=== PATIENT | female | born 1945 | race Caucasian/White ===

== ENCOUNTER 2022-05-15 07:33 | Day surgery (SDC) | payer MEDICARE, SELFPAY ==
[2022-05-09 14:27] VITALS: BMI 33.9
--- NOTE | 2022-05-12 08:19 | MHC.SHP ---
Pre-Procedural Eval Section A Date of Service: 05/12/22 The patient is an INPATIENT: No Changes since office visit: No Cold of Flu in the past 2 weeks, No New Medical Problems, No Changes in Medication and No Patient answered all questions The History & Physical has been completed within 30 days and I have reviewed it.: Yes Section B Chief Complaint: Age-related nuclear cataract, right eye Allergies: Allergies Allergy/AdvReac Type Severity Reaction Status Date / Time hydromorphone Allergy Hallucinati Verified 05/09/22 14:25 ons oxycodone [OXYCODONE] AdvReac Severe confusion Unverified 05/09/22 14:25 budesonide [From Symbicort] AdvReac Loss of Verified 05/09/22 14:25 Voice formoterol [From Symbicort] AdvReac Loss of Verified 05/09/22 14:25 Voice prednisone AdvReac Confusion Verified 05/09/22 14:25 Plan Diagnosis/Plan: Unchanged I have reviewed the history and physical and performed a pertinent physical examination on my patient. No changes have occurred unless specified. Time Spent With Patient Time: Total time managing care of this patient today ____ minutes.
[2022-05-15 09:41] VITALS: BP 156/90; PULSE 82; RESP 20; TEMP 36.6; O2SAT 95
[2022-05-15] MEDS: Tropicamide 1 % Ophth Sol 3 ML BTL 1 DROP EYE-RIGHT ×3 (09:47→09:48)
[2022-05-15] MEDS: Cyclopentolate 1 % Ophth Sol 2 ML DRPBTL 1 DROP EYE-RIGHT ×3 (09:47→09:48)
[2022-05-15] MEDS: Ketorolac Tromethamine 0.5% Op 5 ML DROPS 1 DROP EYE-RIGHT ×3 (09:47→09:48)
[2022-05-15] MEDS: Tetracaine HCl/PF 0.5% Oph Sol 4 ML DROPS 1 DROP EYE-RIGHT (09:47)
[2022-05-15] MEDS: Phenylephrine HCL 2.5% Oph SoL 2 ML BOTTLE 1 DROP EYE-RIGHT ×3 (09:47→09:48)
--- NOTE | 2022-05-15 09:58 | HO.ANESPROP2 ---
HPI - Anesthesia Eval Consult details Narrative: Right cataract PMFSH Past Medical History Medical History Anxiety COPD (chronic obstructive pulmonary disease) Depression GERD (gastroesophageal reflux disease) History of COVID-19 History of IBS Hx of cancer of lung Hyperlipidemia Family History Family history of problems with anesthesia: No Surgical History Surgical History History of bilateral carpal tunnel release History of lobectomy of lung History of lumbar discectomy Hx of colonoscopy History of Problems with Anesthesia: No Social History Social History Household Members Other:: Elderly housing Housing Other:: Elderly Housing Are you a primary critical care physician assistant to a significant other at home: No 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 If so, by whom?: No Are you DNR?: No Advance Directives: No Advance Directives Information Provided: Yes Advance Directives on File: No Recently lost weight without trying: No Eating poorly because of decreased appetite: No Nutrition Risks: No Nutritional Risk Meds Allergies Allergy/AdvReac Type Severity Reaction Status Date / Time hydromorphone Allergy Hallucinati Verified 05/09/22 14:25 ons oxycodone [OXYCODONE] AdvReac Severe confusion Verified 05/15/22 09:46 budesonide [From Symbicort] AdvReac Loss of Verified 05/09/22 14:25 Voice formoterol [From Symbicort] AdvReac Loss of Verified 05/09/22 14:25 Voice prednisone AdvReac Confusion Verified 05/09/22 14:25 Active Medications: Current Medications Povidone Iodine (Povidone Iodine 5 % Ophth Soln 30 Ml Bottle) 1 appl EYE-RIGHT PREOP PRN PRN Reason: Pre-Op Surgical Implant Prophy Home Medications Medication Instructions Recorded Confirmed Last Taken Type albuterol sulfate 90 mcg/actuation inhalation 02/22/22 Unknown History aerosol inhaler duloxetine 30 mg capsule,delayed 1 cap PO DAILY 02/22/22 05/09/22 05/15/22 History release fluticasone fur. 100 mcg-umeclid 1 puff inhalation DAILY 02/22/22 05/09/22 Unknown History 62.5 mcg-vilant 25 mcg inhalat.powder (Trelegy Ellipta) ipratropium 0.5 mg-albuterol 3 mg ml inhalation 02/22/22 Unknown History (2.5 mg base)/3 mL nebulization soln lorazepam 0.5 mg tablet 1 tab PO TID 02/22/22 05/09/22 05/15/22 History primidone 50 mg tablet 1 tab PO DAILY 02/22/22 05/09/22 Unknown History sertraline 100 mg tablet 1 tab PO BID 02/22/22 05/09/22 Unknown History simvastatin 40 mg tablet 1 tab PO BEDTIME 02/22/22 05/09/22 Unknown History Exam Exam Date and Time: May 15, 2022 0958 Height,Weight and Vital Signs: Height 5 ft 2 in Weight 84.2 kg Last Vital Signs Temp 98 F 05/15/22 09:41 Pulse 82 05/15/22 09:41 Resp 20 05/15/22 09:41 BP 156/90 H 05/15/22 09:41 Pulse Ox 95 05/15/22 09:41 O2 Del Method 05/15/22 09:41 Airway Mallampati Class: I TM Dist: >3cm Neck ROM: Full Loose/Missing/Broken Teeth: Yes and Lower Heart: ok Lungs: ok Assessment and Plan Final Anesthetic Review Family History of Problems with Anesthesia: No History of Problems with Anesthesia: No NPO: Yes ASA Class: III Final Preanesthetic Review: No Changes in Pt Med Stat, Meds/Allgs Chart Reviewed, Consent Obtained/Reviewed and Anes Risks/Benef Reviewed Patient Risk: High Procedure Risk: Intermediate Anesthetic Plan Anesthetic Plan: MAC: and Agree w/ Assess. and Plan Disposition: Standard PACU
[2022-05-15] MEDS: Lactated Ringers 1,000 ML 50 ML IVCONT (10:36)
--- NOTE | 2022-05-15 10:37 | HO.PNOPHT ---
Ophthalmology Procedure Procedure Date of Service: 05/15/22 Ophthalmology Viscoelastic: Healezekiel Johnsont Dual Pack Pro Ophthalmology Lenses: TECNIS [id number] (27.5) Procedure Notes: PREOPERATIVE DIAGNOSIS: Decreased visual acuity right eye secondary to cataract POSTOPERATIVE DIAGNOSIS: Same PROCEDURE: Right cataract extraction with intraocular lens insertion SURGEON: Faisal Delvalle M.D. ANESTHESIA: Topical/MAC ESTIMATED BLOOD LOSS: None COMPLICATIONS: None After obtaining informed consent, the patient was brought to the operating room suite and placed in the supine position. After adequate sedation per anesthesia, topical drops of Tetracaine were given to the right eye. The eye was then prepped and draped in the usual sterile fashion. The operating room microscope was then positioned over the operative eye and a lid speculum placed. A paracentesis was created. Viscoelastic was then instilled into the anterior chamber. A three plane incision was then created temporally, utilizing a 2.85 mm keratome. Capsulotomy forceps were then utilized to create a circular tear capsulotomy. Hydrodissection and hydrodelineation were carried out until adequate mobilization of the nucleus occurred. Phacoemulsification was then utilized to remove the dense central nucleus followed by removal of the cortical material utilizing the automated aspiration irrigation unit. Viscoelastic was instilled into the posterior capsular bag followed by placement of a posterior chamber intraocular lens without difficulty. The residual Viscoelastic was then removed utilizing the automated IA machine. The wound was checked and found to be watertight. The patient tolerated the procedure well and the lid speculum was removed. Intracameral injection of Vigamox 0.1 mL followed by a subtenon injection of Kenalog-40 0.2 mL were administered. The patient will be seen in the a.m.
[2022-05-15 10:58] VITALS: BP 177/99; PULSE 83; RESP 22; TEMP 36.9; O2SAT 99
[2022-05-15 11:04] VITALS: BP 156/90; PULSE 81; RESP 18; TEMP 36.9; O2SAT 99
== END 2022-05-15 11:17 | disposition home or self-care (01) ==
PROVIDERS: PCP Nurse Practitioner Family; Visit Provider Ophthalmology
PROC: (CPT 66985; principal; 2022-05-15 10:40)
DX: H25.11 Age-related nuclear cataract, right eye (principal); H54.7 Unspecified visual loss; J44.9 Chronic obstructive pulmonary disease, unspecified; R06.02 Shortness of breath; I10 Essential (primary) hypertension; E78.5 Hyperlipidemia, unspecified; F33.9 Major depressive disorder, recurrent, unspecified; Z85.118 Personal history of other malignant neoplasm of bronchus and lung; Z90.2 Acquired absence of lung [part of]; Z99.81 Dependence on supplemental oxygen; Z87.891 Personal history of nicotine dependence; Z79.51 Long term (current) use of inhaled steroids; Z79.899 Other long term (current) drug therapy; Z86.16 Personal history of COVID-19; Z66 Do not resuscitate
CPT/HCPCS: 66984; J3301; V2632

== ENCOUNTER 2022-05-29 07:00 | Day surgery (SDC) | payer MEDICARE, SELFPAY ==
[2022-05-09 14:59] VITALS: BMI 33.9
--- NOTE | 2022-05-26 09:59 | MHC.SHP ---
Pre-Procedural Eval Section A Date of Service: 05/26/22 The patient is an INPATIENT: No Changes since office visit: No Cold of Flu in the past 2 weeks, No New Medical Problems, No Changes in Medication and No Patient answered all questions The History & Physical has been completed within 30 days and I have reviewed it.: Yes Section B Chief Complaint: Age-related nuclear cataract, left eye Allergies: Allergies Allergy/AdvReac Type Severity Reaction Status Date / Time hydromorphone Allergy Hallucinati Verified 05/09/22 14:25 ons oxycodone [OXYCODONE] AdvReac Severe confusion Verified 05/15/22 09:46 budesonide [From Symbicort] AdvReac Loss of Verified 05/09/22 14:25 Voice formoterol [From Symbicort] AdvReac Loss of Verified 05/09/22 14:25 Voice prednisone AdvReac Confusion Verified 05/09/22 14:25 Plan Diagnosis/Plan: Unchanged I have reviewed the history and physical and performed a pertinent physical examination on my patient. No changes have occurred unless specified. Time Spent With Patient Time: Total time managing care of this patient today ____ minutes.
--- NOTE | 2022-05-29 07:50 | OP_ITS ---
Ophthalmology Procedure Procedure Date of Service: 05/29/22 Ophthalmology Viscoelastic: Healezekiel Johnsont Dual Pack Pro Ophthalmology Lenses: TECFAVIOLA [id number] (27) Procedure Notes: PREOPERATIVE DIAGNOSIS: Decreased visual acuity left eye secondary to cataract POSTOPERATIVE DIAGNOSIS: Same PROCEDURE: Left cataract extraction with intraocular lens insertion SURGEON: Faisal Delvalle M.D. ANESTHESIA: Topical/MAC ESTIMATED BLOOD LOSS: None COMPLICATIONS: None After obtaining informed consent, the patient was brought to the operation room suite and placed in the supine position. After adequate sedation per anesthesia, topical drops of Tetracaine were given to the left eye. The eye was then prepped and draped in the usual sterile fashion. The operating room microscope was then positioned over the operative eye and a lid speculum placed. A paracentesis was created. Viscoelastic was then instilled into the anterior chamber. A three plane incision was then created temporally, utilizing a 2.85 mm keratome. Capsulotomy forceps were then utilized to create a circular tear capsulotomy. Hydrodissection and hydrodelineation were carried out until adequate mobilization of the nucleus occurred. Phacoemulsification was then utilized to remove the dense central nucleus followed by removal of the cortical material utilizing the automated aspiration irrigation unit. Viscoat elastic was instilled into the posterior capsular bag followed by placement of a posterior chamber intraocular lens without difficulty. The residual Viscoat elastic was then removed utilizing the automated IA machine. The wound was check and found to be watertight. The patient tolerated the procedure well and the lid speculum was removed. Intracameral injection of Vigamox 0.1 mL followed by a subtenon injection of Kenalog-40 0.2 mL were administered. The patient will be seen in the a.m. MTDD
[2022-05-29] MEDS: Tetracaine HCl/PF 0.5% Oph Sol 4 ML DROPS 1 DROP EYE-LEFT (07:54)
[2022-05-29] MEDS: Cyclopentolate 1 % Ophth Sol 2 ML DRPBTL 1 DROP EYE-LEFT ×3 (07:56→08:08)
--- NOTE | 2022-05-29 07:57 | P.CONAN_ITS ---
FORMERLY [facility], LATER [facility] Past Medical History Medical History Anxiety COPD (chronic obstructive pulmonary disease) Depression GERD (gastroesophageal reflux disease) History of COVID-19 History of IBS Hx of cancer of lung Hyperlipidemia Family History Family history of problems with anesthesia: No Surgical History Surgical History History of bilateral carpal tunnel release History of lobectomy of lung History of lumbar discectomy Hx of colonoscopy History of Problems with Anesthesia: No Social History Social History Household Members Other:: Elderly housing Housing Other:: Elderly Housing Are you a primary rn transitional care to a significant other at home: No Do you presently have 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 If so, by whom?: No Are you DNR?: No Advance Directives: No Advance Directives Information Provided: Yes Advance Directives on File: No Recently lost weight without trying: No Eating poorly because of decreased appetite: No Nutrition Risks: No Nutritional Risk Meds Allergies Allergy/AdvReac Type Severity Reaction Status Date / Time hydromorphone Allergy Hallucinati Verified 05/29/22 07:44 ons oxycodone [OXYCODONE] AdvReac Severe confusion Verified 05/29/22 07:44 budesonide [From Symbicort] AdvReac Loss of Verified 05/29/22 07:44 Voice formoterol [From Symbicort] AdvReac Loss of Verified 05/29/22 07:44 Voice prednisone AdvReac Confusion Verified 05/29/22 07:44 Active Medications: Current Medications Lactated Ringer's (Lr) 500 mls @ 20 mls/hr IVCONT .Q24H SUNITA Povidone Iodine (Povidone Iodine 5 % Ophth Soln 30 Ml Bottle) 1 appl EYE-LEFT PREOP PRN PRN Reason: Pre-Op Surgical Implant Prophy Home Medications Medication Instructions Recorded Confirmed Last Taken Type albuterol sulfate 90 mcg/actuation inhalation 02/22/22 Unknown History aerosol inhaler duloxetine 30 mg capsule,delayed 1 cap PO DAILY 02/22/22 05/09/22 05/29/22 06:30 History release fluticasone fur. 100 mcg-umeclid 1 puff inhalation DAILY 02/22/22 05/09/22 Unknown History 62.5 mcg-vilant 25 mcg inhalat.powder (Trelegy Ellipta) ipratropium 0.5 mg-albuterol 3 mg ml inhalation 02/22/22 Unknown History (2.5 mg base)/3 mL nebulization soln lorazepam 0.5 mg tablet 1 tab PO TID 02/22/22 05/09/22 05/29/22 06:30 History primidone 50 mg tablet 1 tab PO DAILY 02/22/22 05/09/22 Unknown History sertraline 100 mg tablet 1 tab PO BID 02/22/22 05/09/22 Unknown History simvastatin 40 mg tablet 1 tab PO BEDTIME 02/22/22 05/09/22 Unknown History Exam Exam Date and Time: May 29, 2022 5884 Height,Weight and Vital Signs: Height 5 ft 2 in Weight 84.2 kg Airway Mallampati Class: II TM Dist: >3cm Neck ROM: Full Loose/Missing/Broken Teeth: No Heart: RRR Lungs: CTA Assessment and Plan Assessment Anesthesia Assessment: Anesthesia Plan Discussed and Chart Reviewed Final Anesthetic Review Family History of Problems with Anesthesia: No History of Problems with Anesthesia: No ASA Class: III Final Preanesthetic Review: Meds/Allgs Chart Reviewed, Consent Obtained/Reviewed and Anes Risks/Benef Reviewed Patient Risk: Low Procedure Risk: Low Anesthetic Plan Anesthetic Plan: MAC: Disposition: Standard PACU
[2022-05-29] MEDS: Tropicamide 1 % Ophth Sol 3 ML BTL 1 DROP EYE-LEFT ×3 (07:58→08:09)
[2022-05-29] MEDS: Ketorolac Tromethamine 0.5% Op 5 ML DROPS 1 DROP EYE-LEFT ×3 (07:59→08:10)
[2022-05-29] MEDS: Phenylephrine HCL 2.5% Oph SoL 2 ML BOTTLE 1 DROP EYE-LEFT ×3 (08:01→08:11)
[2022-05-29] MEDS: Lactated Ringers 500 ML 20 ML IVCONT (08:07)
[2022-05-29 08:12] VITALS: BP 138/76; PULSE 76; RESP 17; TEMP 36; O2SAT 93
[2022-05-29 09:16] VITALS: BP 128/74; PULSE 73; RESP 16; TEMP 36.8; O2SAT 97
== END 2022-05-29 09:28 | disposition home or self-care (01) ==
LOC: HO.SSS 07:00
PROVIDERS: PCP Nurse Practitioner Family; Visit Provider Ophthalmology
PROC: (CPT 66985; principal; 2022-05-29 08:50)
DX: H25.12 Age-related nuclear cataract, left eye (principal); H35.341 Macular cyst, hole, or pseudohole, right eye; H54.7 Unspecified visual loss; J44.9 Chronic obstructive pulmonary disease, unspecified; Z85.118 Personal history of other malignant neoplasm of bronchus and lung; Z87.891 Personal history of nicotine dependence; Z79.51 Long term (current) use of inhaled steroids; Z79.899 Other long term (current) drug therapy; Z88.8 Allergy status to other drugs, medicaments and biological substances
CPT/HCPCS: 66984; J3301; V2632

== ENCOUNTER 2023-04-11 15:13 | Emergency (ER) | payer MEDICARE, SELFPAY ==
--- NOTE | ~2023-04-11 | XR_ITS ---
EXAMINATION: XR LUMBOSACRAL SPINE CLINICAL INFORMATION: Pain COMPARISON: None available. TECHNIQUE: Three views of the lumbosacral spine. FINDINGS: Bone alignment is normal. No fracture or dislocation. Multilevel spondylosis. Lower lumbar spine facet arthritis. Central pelvic calcification probably representing a calcified fibroid. Mild atherosclerotic disease XR/XR lumbar spine 2-3V IMPRESSION: Degenerative changes
--- NOTE | 2023-04-11 15:25 | ED.GENADULT ---
HPI - General Adult General Chief complaint: Back Pain/Injury Stated complaint: BACK PAIN/SPASM PER EMS Time Seen by Provider: 04/11/23 15:25 Source: patient, family (patient's daughter) and EMS Mode of arrival: EMS Limitations: no limitations History of Present Illness HPI narrative: Patient is a 77 year old assigned female at with a history of lung cancer presenting to the emergency department today with right sided low back pain. Patient states that she was sitting for awhile working on a project when she began to have low back pain. Patient states that it got better, she slept, and woke up the this morning with more pain in the right low back. Patient denies any dizziness, lightheadedness, abdominal pain, nausea, vomiting, fever, chills, blurry vision, double vision, loss of vision, chest pain, difficulty breathing, shortness of breath, night sweats, pain with urination, increased urinary frequency, increased urinary urgency, blood in her urine or stool, syncope or a near syncopal episode, recent trauma or falls, bowel incontinence, bladder incontinence, bowel retention, bladder retention, or any other complaints at this time. Onset (ago): day(s) (1) Location: back Radiation: non-radiation Severity: mild Severity scale (1-10): 3 Quality: aching and dull Pain Consistency: constant Relieving factors: none Exacerbating factors: movement Associated symptoms: denies other symptoms Treatments prior to arrival: none Related Data Home Medications Medication Instructions Recorded Confirmed albuterol sulfate 90 mcg/actuation inhalation 02/22/22 aerosol inhaler duloxetine 30 mg capsule,delayed 1 cap PO DAILY 02/22/22 05/09/22 release fluticasone fur. 100 mcg-umeclid 1 puff inhalation DAILY 02/22/22 05/09/22 62.5 mcg-vilant 25 mcg inhalat.powder (Trelegy Ellipta) ipratropium 0.5 mg-albuterol 3 mg ml inhalation 02/22/22 (2.5 mg base)/3 mL nebulization soln lorazepam 0.5 mg tablet 1 tab PO TID 02/22/22 05/09/22 primidone 50 mg tablet 1 tab PO DAILY 02/22/22 05/09/22 sertraline 100 mg tablet 1 tab PO BID 02/22/22 05/09/22 simvastatin 40 mg tablet 1 tab PO BEDTIME 02/22/22 05/09/22 Previous Rx's Medication Instructions Recorded cyclobenzaprine 5 mg tablet 5 mg PO TID PRN muscle spasm 7 04/11/23 days #21 tabs Allergies Allergy/AdvReac Type Severity Reaction Status Date / Time hydromorphone Allergy Hallucinati Verified 05/29/22 07:44 ons oxycodone [OXYCODONE] AdvReac Severe confusion Verified 05/29/22 07:44 budesonide [From Symbicort] AdvReac Loss of Verified 05/29/22 07:44 Voice formoterol [From Symbicort] AdvReac Loss of Verified 05/29/22 07:44 Voice prednisone AdvReac Confusion Verified 05/29/22 07:44 Review of Systems Constitutional: Constitutional: Reports no additional constitutional complaints, Denies chills, Denies fever(s) and Denies night sweats Eyes: Eyes: Reports no additional eye complaints, Denies blurry vision, Denies change in vision, Denies diplopia, Denies eye discharge, Denies loss of vision and Denies eye pain ENT: Denies dizziness Cardiovascular: Cardiovascular: Reports no additional cardiovascular complaints, Denies chest pain, Denies lightheadedness, Denies Loss of Consciousness and Denies dyspnea Respiratory: Respiratory: Reports no additional respiratory complaints and Denies dyspnea Gastrointestinal: Gastrointestinal: Reports no additional gastrointestinal complaints, Denies abdominal pain, Denies melena, Denies hematochezia, Denies change in bowel habits and Denies change in stool character Genitourinary: Genitourinary: Denies hematuria, Denies urinary frequency, Denies dysuria, Denies urinary incontinence, Denies urinary hesitancy and Denies urinary urgency Musculoskeletal: Musculoskeletal: Reports no additional musculoskeletal complaints, Reports back pain, Denies numbness and Denies tingling Neurologic: Denies dizziness, Denies loss of vision, Denies numbness and Denies tingling Psychiatric: Psychiatric: Reports no additional psychiatric complaints Endocrine: Endocrine: Reports no additional endocrine complaints Hematologic/Lymphatic: Hematologic/Lymphatic: Reports no additional hematologic/lymphatic complaints Allergic/Immunologic: Allergic/Immunologic: Reports no additional allergic/immunologic complaints PMFSH Past Medical History Attestation statement: The following information was validated with the patient. Source: old records reviewed and nursing notes reviewed Medical History History of COVID-19 COPD (chronic obstructive pulmonary disease) GERD (gastroesophageal reflux disease) Hx of cancer of lung Anxiety Depression History of IBS Hyperlipidemia Surgical History History of lobectomy of lung Hx of colonoscopy History of lumbar discectomy History of bilateral carpal tunnel release Social History Social History Household Members Other:: Elderly housing Housing Other:: Elderly Housing Are you a primary cardiac care nurse to a significant other at home: No Do you presently have visiting nurse or other home services: Yes ([employer]) Patient Tobacco Use Status: Former Tobacco user Quit Date: 22 yrs ago Tobacco use type: Cigarette Second Hand Smoke Exposure: No Advance Directives: No Advance Directives Information Provided: No Physical Exam ED Vital Signs: Vital Signs - 24 hr 04/11/23 15:49 Temperature 97.8 F Pulse Rate 85 Respiratory Rate 18 Blood Pressure 172/91 H Pulse Oximetry 95 Oxygen Delivery Method Room Air BMI result Body Mass Index 32.8 Const General: cooperative, no acute distress, alert and awake Nutritional Appearance: well nourished Orientation/consciousness: patient oriented x3 Limitations: no limitations HENMT Head: Yes normal to inspection and Yes atraumatic Ears: hearing grossly normal bilaterally and external ears normal General nose exam: Normal external nose present, no nasal discharge noted and no epistaxis Face and sinus: Yes normal facial exam, No abrasion and No laceration Mouth: Normal oral and palatal mucosa present, no drooling and no muffled voice Eyes General: appearance normal, both eyes and all related structures Periorbital: periorbital findings normal Eyelids: Yes eyelids normal Conjunctivae: conjunctivae normal Pupils: Equal, round and reactive pupils present EOM: EOMs intact bilaterally Neck Neck: Yes normal visual inspection, Yes full ROM and Yes no lymphadenopathy Chest Chest palpation & inspection: normal inspection of the chest Resp Effort & Inspection: normal respiratory effort and able to speak in complete sentences GI Inspection: Yes normal to inspection General: Yes no CVA tenderness Back/Spine/Pelvis Back: no CVA tenderness Cervical Spine: normal cervical lordosis and cervical ROM normal Thoracic/Lumbar Spine: thoracic and lumbar spine normal to inspection and thoraco-lumbar ROM normal Pelvis: no pain with anterior-posterior compression Neuro General: patient oriented x3 and moves all extremities Cranial nerves: Yes Equal, round and reactive pupils present Cognition (Neuro): normal cognition Motor exam (neuro): 5/5 motor strength present throughout Sensory Exam: Normal double simultaneous stimulation for sensation Coordination: mylkri-ce-mktc test normal Extrem General: Yes normal to inspection, Yes full ROM and Yes capillary refill normal Psych Appearance: grossly normal Mental Status: mental status grossly normal Affect: normal affect Attitude: cooperative Thought process: Normal thought process present Thought content: Normal thought content present Insight: Good insight present (Psych) Medications Administered Discontinued Medications Generic Name Dose Route Start Last Admin Trade Name Freq PRN Reason Stop Dose Admin Cyclobenzaprine HCl 5 mg 04/11/23 15:29 04/11/23 15:56 Cyclobenzaprine Hcl 5 Mg Tablet PO 04/11/23 15:30 5 mg ONCE ONE Administration Ketorolac Tromethamine 15 mg 04/11/23 15:29 04/11/23 15:56 Ketorolac Tromethamine 15 Mg/Ml Vial IM 04/11/23 15:30 15 mg ONCE ONE Administration Medical Decision Making Medical Decision Making [facility] Narrative: Patient is a 77 year old assigned female at with a history of lung cancer presenting to the emergency department today with right sided low back pain. Patient's physical exam was unremarkable. Patient's blood work was unremarkable. Patient's lumbar x-ray showed no acute process but did show an incidental finding of a uterine fibroid that is calcified. I explained my physical exam findings as well as all test results to the patient. I answered all questions asked by the patient. Patient received PO flexeril and IM Toradol which she stated helped her symptoms significantly. I stressed the importance of the patient taking her medication as prescribed. I stressed the importance of the patient following up with her primary care provider. I stressed the importance of the patient returning to the emergency department immediately if her symptoms were to worsen or if she were to develop any dizziness, shortness of breath, difficulty breathing, chest pain, blurry vision, loss of vision, nausea, vomiting, abdominal pain, fever, chills, back pain, or any other complaints. Patient verbalized agreement and understanding with this treatment plan and discharge. Differential Diagnosis Differential Diagnoses: The differential diagnosis associated with the presentation includes Low back pain Muscle spasm Admission/Observation Consideration of admission/observation: Escalation of care including admission/observation considered Patient would have been admitted to the hospital had her work up had any findings where hospital admission was appropriate and her clinical presentation warranted hospital admission. Lab Data MDM Lab Attestation statement: I reviewed the patient's lab results. My interpretation of these studies and their corresponding values is that they are grossly normal. 04/11/23 16:43 04/11/23 16:43 Labs: Lab Results 04/11/23 Range/Units 16:43 WBC 9.1 (4.8-10.8) X10*3/uL RBC 4.48 (4.20-5.50) X10*6/uL Hgb 14.2 (12.0-16.0) g/dl Hct 43.4 (37.0-47.0) % MCV 96.9 (80.0-98.0) fL MCH 31.7 (27.0-33.0) pg MCHC 32.7 (31.0-35.0) g/dl RDW 12.1 (11.0-16.0) % Plt Count 268 (160-400) X10*3/uL MPV 8.5 L (9.4-12.3) fL Immature Gran % (Auto) 0.2 (0.0-0.4) % Neut % (Auto) 56.3 (45-73) % Lymph % (Auto) 31.7 (20-40) % [place] % (Auto) 7.8 (2-11) % Eos % (Auto) 3.1 (0-4) % Baso % (Auto) 0.9 (0-2) % Lymph # (Auto) 2.9 (1.2-4.9) X10*3/uL [place] # (Auto) 0.7 (0.1-1.2) X10*3/uL Eos # (Auto) 0.3 (0.0-0.4) X10*3/uL Baso # (Auto) 0.1 (0.0-0.2) X10*3/uL Abs Immat Gran (auto) 0.02 (0.00-0.03) X10*3/uL Absolute Neuts (auto) 5.1 (2.0-8.3) x10*3/uL Absolute Nucleated RBC 0.000 (0.0-0.012) X10*3/uL Nucleated RBC % (auto) 0.0 (0.0-0.2) /100WBC Sodium 139 (135-145) mmol/L Potassium 4.6 (3.3-5.1) mmol/L Chloride 107 (96-108) mmol/L Carbon Dioxide 26 (22-29) mmol/L Anion Gap 11 L (12-20) BUN 23 H (9-16) mg/dL Creatinine 0.81 (0.5-1.4) mg/dL Estim Creat Clear Calc 60.6 Estimated GFR > 60 Random Glucose 109 (60-115) mg/dL Calcium 9.5 (8.4-10.2) mg/dL Magnesium 2.1 (1.6-2.6) mg/dL Total Bilirubin 0.2 (0.0-1.0) mg/dL AST 18 (5-31) U/L ALT 16 (0-31) U/L Alkaline Phosphatase 98 (39-117) U/L Total Protein 7.0 (6.5-8.0) g/dL Albumin 4.0 (3.5-5.0) g/dL Independent Interpretation I performed an independent interpretation of an: Plain X-Ray Interpretation: My interpretation is in agreement with the radiologist's impression of this imaging study. EXAMINATION: XR LUMBOSACRAL SPINE CLINICAL INFORMATION: Pain COMPARISON: None available. TECHNIQUE: Three views of the lumbosacral spine. FINDINGS: Bone alignment is normal. No fracture or dislocation. Multilevel spondylosis. Lower lumbar spine facet arthritis. Central pelvic calcification probably representing a calcified fibroid. Mild atherosclerotic disease XR/XR lumbar spine 2-3V IMPRESSION: Degenerative changes Dictated By: Shanti Mckeon MD Signed By: Electronically signed by Shanti Mckeon MD 04/11/23 1710 Radiology Impression Discussion of test interpretation with radiology: I have reviewed the radiologist's reading. Independent Historian Clinical information obtained from an independent historian. History obtained from or confirmed by: EMS (EMS provided additional history and confirmed the history provided by the patient.) and Other (patient's daughter provided additional history and confirmed the history provided by the patient.) Prescription Management I considered prescription management with: Pain Medication (patient prescribed pain medication) Discharge Plan Discharge Clinical Impression: Low back pain Patient Disposition: Home, Self-Care Instructions: Acute Low Back Pain (ED) Additional Instructions: Your lumbar spine XR showed an incidental finding of a calcified uterine fibroid. You should follow up with an OBGYN about this. Follow up with your primary care provider. Return to the emergency department immediately if your symptoms worsen or if you develop any dizziness, shortness of breath, difficulty breathing, chest pain, blurry vision, loss of vision, nausea, vomiting, abdominal pain, fever, chills, back pain, or any other complaints. Prescriptions: New cyclobenzaprine 5 mg tablet 5 mg PO TID PRN (Reason: muscle spasm) 7 Days Qty: 21 0RF No Action primidone 50 mg tablet 1 tab PO DAILY ipratropium-albuterol 0.5 mg-3 mg(2.5 mg base)/3 mL solution for nebulization inhalation sertraline 100 mg tablet 1 tab PO BID simvastatin 40 mg tablet 1 tab PO BEDTIME lorazepam 0.5 mg tablet 1 tab PO TID albuterol sulfate 90 mcg/actuation HFA aerosol inhaler inhalation duloxetine 30 mg capsule,delayed release(DR/EC) 1 cap PO DAILY Trelegy Ellipta 100-62.5-25 mcg blister with device 1 puff inhalation DAILY Referrals: Meghna Menjivar NP [Primary Care Provider] - Tahir Smalls MD [Physician] - (Call to establish and follow up with an OBGYN. If you already have an OBGYN, please follow up with them.) Interventions: ED Discharge Assessment Last Done: 04/11/23 17:32 Discharge Date/Time: 04/11/23 17:40 Print Language: Azeri
[2023-04-11 15:49] VITALS: BP 168/100; BP 172/91; PULSE 85; PULSE 87; RESP 18; TEMP 36.6; O2SAT 92; O2SAT 95; BMI 32.8
[2023-04-11] MEDS: Ketorolac Tromethamine 15 MG/ML VIAL IM (15:56)
[2023-04-11] MEDS: Cyclobenzaprine HCl 5 MG TABLET PO (15:56)
[2023-04-11 16:48] LABS: MANUAL DIFF FLAG NO
[2023-04-11 16:50] LABS: Basophils Absolute Auto 0.1 X10*3/uL (0.0-0.2); Basophils Percent Auto 0.9 % (0-2); Eosinophils Absolute Auto 0.3 X10*3/uL (0.0-0.4); Eosinophils Percent Auto 3.1 % (0-4); Hematocrit 43.4 % (37.0-47.0); Hemoglobin 14.2 g/dl (12.0-16.0); Imm Gran Abs Auto 0.02 X10*3/uL (0.00-0.03); Imm Gran Pct Auto 0.2 % (0.0-0.4); Lymphocytes Absolute Auto 2.9 X10*3/uL (1.2-4.9); Lymphocytes Percent Auto 31.7 % (20-40); Mean Corpuscular HGB Conc 32.7 g/dl (31.0-35.0); Mean Corpuscular Hemoglobin 31.7 pg (27.0-33.0); Mean Corpuscular Volume 96.9 fL (80.0-98.0); Mean Platelet Volume 8.5 fL (9.4-12.3); Monocytes Absolute Auto 0.7 X10*3/uL (0.1-1.2); Monocytes Percent Auto 7.8 % (2-11); Neutrophils Absolute Auto 5.1 x10*3/uL (2.0-8.3); Neutrophils Percent Auto 56.3 % (45-73); Platelet Count 268 X10*3/uL (160-400); Red Blood Count 4.48 X10*6/uL (4.20-5.50); Red Cell Distribution Width 12.1 % (11.0-16.0); White Blood Count 9.1 X10*3/uL (4.8-10.8)
[2023-04-11 17:06] LABS: Alanine Aminotransferase 16 U/L (0-31); Alkaline Phosphatase 98 U/L (39-117); Anion Gap 11 (12-20); Aspartate Amino Transferase 18 U/L (5-31); Bilirubin Total 0.2 mg/dL (0.0-1.0); Blood Urea Nitrogen 23 mg/dL (9-16); Calcium 9.5 mg/dL (8.4-10.2); Carbon Dioxide 26 mmol/L (22-29); Chloride 107 mmol/L (96-108); Creatinine Clr Calc Pharmacy 60.6; Estimated Glomerular Filt Rate > 60; Glucose Random 109 mg/dL (60-115); Magnesium 2.1 mg/dL (1.6-2.6); Potassium 4.6 mmol/L (3.3-5.1); Sodium 139 mmol/L (135-145)
== END 2023-04-11 17:40 | disposition home or self-care (01) ==
PROVIDERS: Physician Assistant Medical; Emergency Provider Emergency Medicine Emergency Medical Services; PCP Nurse Practitioner Family
DX: M54.50 Low back pain, unspecified (principal); E78.5 Hyperlipidemia, unspecified; Z85.118 Personal history of other malignant neoplasm of bronchus and lung; Z87.891 Personal history of nicotine dependence; Z79.899 Other long term (current) drug therapy; Z79.02 Long term (current) use of antithrombotics/antiplatelets
CPT/HCPCS: 36415; 72100; 80053; 83735; 85025; 96372; 99283; 99284; J1885

== ENCOUNTER 2023-09-03 09:02 | Outpatient (REF) | payer MEDICARE, SELFPAY ==
--- NOTE | ~2023-09-03 | XR_ITS ---
EXAMINATION: XR KNEE, LEFT CLINICAL INFORMATION: Pain in left knee COMPARISON: 02/23/2013 weightbearing view of left knee TECHNIQUE: AP weightbearing, lateral view and sunrise view of the left knee. FINDINGS: There is narrowing cough medial compartment of left knee joint Since 2012 and mild periosteal reaction in the distal metadiaphysis of the left femoral shaft. There is mild varus deformity of left knee. There is patellar spurring with narrowing of lateral compartment of patellofemoral joint. There is no joint effusion. XR/XR knee LT 3V IMPRESSION: Progressive degenerative osteoarthritis of the left knee joint
== END 2023-09-03 09:03 | disposition home or self-care (01) ==
LOC: HO.HOSX 09:02
PROVIDERS: Visit Provider Physician Assistant
DX: M17.12 Unilateral primary osteoarthritis, left knee (principal)
CPT/HCPCS: 20610; 73562; 99202; J1010

== ENCOUNTER 2023-09-03 13:22 | Outpatient (AMB) | payer MEDICARE, SELFPAY ==
[2023-09-03 13:34] VITALS: BMI 32.6
--- NOTE | 2023-09-03 13:34 | MHC.OFFVIS ---
Vital Signs 09/03/23 13:34 Height 5 ft 3 in Weight 184 lb BMI 32.6 Intake Visit Reasons: [employer]- LT knee pain Intake Note: New patient, referred for left knee pain. Patient states about 6 month she began experiencing left ankle sharp pain that has not radiated to left knee. Communicates difficulty walking. Has been taking Tylenol Extra Strength. Also reports right calf pain as well as right ankle pain for one month. Ampoule Filler And Sealer Required: No Accompanied by: Friend Allergies hydromorphone Allergy (Verified 09/03/23 13:35) Hallucinations oxycodone [OXYCODONE] Adverse Reaction (Severe, Verified 09/03/23 13:35) confusion budesonide [From Symbicort] Adverse Reaction (Verified 09/03/23 13:35) Loss of Voice formoterol [From Symbicort] Adverse Reaction (Verified 09/03/23 13:35) Loss of Voice prednisone Adverse Reaction (Verified 09/03/23 13:35) Confusion Medication List - Last Reconciled 09/03/23 by Vilma Stark PA-C albuterol sulfate 90 mcg/actuation inhalation duloxetine 1 cap PO DAILY dotnoqyloxg-fvofwtvwe-trrqiyor 100-62.5-25 mcg (Trelegy Ellipta) 1 puff inhalation DAILY ipratropium-albuterol 0.5 mg-3 mg(2.5 mg base)/3 mL mL inhalation primidone 1 tab PO DAILY simvastatin 1 tab PO BEDTIME HPI 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 She states she has sharp pain in her knee which makes her difficult to ambulate. She has been taking Tylenol for her pain. She also c/o right calf and right ankle pain for about a month. [facility] Medical History History of COVID-19 COPD (chronic obstructive pulmonary disease) GERD (gastroesophageal reflux disease) Hx of cancer of lung Anxiety Depression History of IBS Hyperlipidemia Surgical History History of lobectomy of lung Hx of colonoscopy History of lumbar discectomy History of bilateral carpal tunnel release Social History (Updated 09/03/23 @ 13:41 by JORDEN Regan) Household Members Other:: Elderly housing Housing Other:: Elderly Housing Are you a primary skin care specialist to a significant other at home: No Do you presently have visiting nurse or other home services: Yes ([employer]) Patient Tobacco Use Status: Former Tobacco user Quit Date: 22 yrs ago Tobacco use type: Cigarette Second Hand Smoke Exposure: No Current occupation: right handed Review of Systems Const All systems reviewed & are unremarkable except as noted in HPI and below Physical Exam Vital Signs: BMI result Body Mass Index 32.6 Const General: cooperative, healthy appearing, comfortable, no acute distress, well developed and alert Orientation/consciousness: patient oriented x3 HEENT Head: Yes normal to inspection, Yes normocephalic and Yes atraumatic Eyes General: appearance normal, both eyes and all related structures Resp Effort & Inspection: normal respiratory effort and able to speak in complete sentences Cardio Rate: regular rate Peripheral pulses: Peripheral pulses 2+ throughout GI Palpation (GI): Soft to palpation Skin Lesions: no lesions Rashes: no rashes Neuro General: patient oriented x3 Extrem Other: Left knee: Skin intact, no erythema or joint effusion. Tenderness along the medial and lateral joint line. Full ROM with crepitus. Negative Anitha?s. No ligamentous laxity. NVI. Office Procedures Joint Injection/Drain Joint Injection/Drain Primary Site: left knee Prep: site was prepped using aseptic technique, ethochloride spray was applied and injection warnings given Injected: 80 mg of, DepoMedrol, with 8 mL of, 1% plain lidocaine and in the joint Approach Used: anterolateral Procedure: The patient tolerated the procedure well and there was some relief with the local anesthesia Coding 44171 - Glenohumeral/Tronchanteric Bursa/Intraarticular Procedure code (CPT) selection complete Results Reviewed Results Reviewed: Xrays were obtained in the office today and personally reviewed by me of the left knee show medial compartment oa with pf oa Assessment & Plan Assessment & Plan (1) Osteoarthritis of left knee: Code(s): M17.12 - Unilateral primary osteoarthritis, left knee Category: Medical Plan We discussed options today which include steroid injection. They did consent to move forward with the left knee injection, which was tolerated well. An order for PT was placed. I recommended rest, ice and elevation and OTC anti-inflammatories PRN for discomfort. If symptoms persist or worsens over the next 6-8 weeks, patient will contact the office, otherwise follow-up as needed. Orders: Orders XR knee LT 3V Today M25.562 - Pain in left knee Medications: Discontinued cyclobenzaprine Discontinued Reason: Patient no longer taking 5 mg PO TID 7 days PRN 21 tabs 0RF muscle spasm Patient Instructions: Scribed for Vilma Stark PA-C, by Matthew Cuevas medical transcription supervisor, on 09/03/2023 at 1:45 PM EST. I, Vilma Stark PA-C, have personally reviewed and agree with the information entered by the scribe. Coding Level of Care Code New Pt Level 3 (68975) Diagnoses Osteoarthritis of left knee M17.12 CPT Codes Coding - Joint 7: 34946 - Glenohumeral/Tronchanteric Bursa/Intraarticular ([id number])
== END 2023-09-03 14:25 | disposition home or self-care (01) ==
PROVIDERS: PCP Nurse Practitioner Family; Visit Provider Physician Assistant
DX: M17.12 Unilateral primary osteoarthritis, left knee (principal)
CPT/HCPCS: 20610; 99203

== ENCOUNTER 2024-11-04 13:59 | Outpatient (AMB) | payer MEDICARE, SELFPAY ==
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
[2024-11-04 14:08] VITALS: BP 138/88; PULSE 100; RESP 16; TEMP 36.2; O2SAT 96; BMI 34.7
--- OUTSIDE RECORDS SUMMARY | 2024-11-04 15:12 | XMS_ITS | Patient Health Record ---
Author Organization [facility] Address [address] [place] [address] Care Team Providers Care Post Commander Name Role Phone Chai Schumacher Primary Care Provider Anup Hermosillo Unavailable [phone] Reason For Referral No Information Medications Medication SIG (Take, Route, Frequency, Duration) Notes Start Date End Date Status ALPRAZolam 0.5mg Act homa Citalopram Hydrobromide 20mg Active Simvastatin 40mg Act homa Problems Problem Type SNOMED Code ICD Code Onset Dates Problem Status W/U Status Risk Notes Problem Irritable bowel syndrome (17236116) Irritable bowel syndrome (564.1) Active confirmed Problem Diarrhea (40175945) Diarrhea (787.91) Active confirmed Problem Constipation (17242941) Constipation (564.00) Active confirmed Problem Altered bowel function (44006579) Change in bowel function (787.99) Active confirmed Problem Gas (415363883) Gas (787.3) Active confirmed Plan Of Treatment Pending Test Test Name Order Date LIVER PROFILE 07/31/2013 T4 (THYROXINE) 07/31/2013 TSH (THYROID STIMULATING HORMONE) 2013 CBC w DIFF 07/31/2013 CELIAC PANEL #10 07/31/2013 Future Test Test Name Order Date COLONOSCOPY 07/31/2013 Insurance Providers Payer Name Payer Address Payer Phone Subscriber Number Group Number Insured Name Patient Relationship to Insured Coverage Start Date Coverage End Date [facility] [address] [place] [phone] [id number] MIAN MARQUEZ Self - patient is the insured Medicare of [facility] [address] [place] [address] [id number] MIAN MARQUEZ Self - patient is the insured Medical (General) History Medical History History ICD Code Colonoscopy 02-06-2005--singl e inflammatory colon polyp removed, internal hemorrhoids, sigmoid diverticulosis Hyperlipidemia Denies NH,DM,CVA,Lung disease,renal dise ase Depression/anxiety Colonoscopy in 08/2013--normal-bx neg for microscopic colitis-no polyps Surgical History Surgery Date(Month/Year) carpal tunnel release both hands disc surgery
== END 2024-11-04 14:33 | disposition home or self-care (01) ==
LOC: HO.HMCSH 13:59
PROVIDERS: PCP Internal Medicine; Visit Provider Internal Medicine
DX: J44.9 Chronic obstructive pulmonary disease, unspecified (principal)

== ENCOUNTER → 2024-11-04 13:59 | Outpatient (BNVA) | payer MEDICARE, SELFPAY | PROVIDERS: PCP Internal Medicine; Visit Provider Internal Medicine | DX: K21.9 Gastro-esophageal reflux disease without esophagitis (principal); J44.9 Chronic obstructive pulmonary disease, unspecified; Z87.891 Personal history of nicotine dependence | CPT/HCPCS: 96127; 99202 ==

== ENCOUNTER 2025-02-17 15:08 | Outpatient (AMB) | payer MEDICARE, SELFPAY ==
[2025-02-17 15:11] VITALS: BP 180/98; PULSE 108; RESP 16; TEMP 36.3; O2SAT 94; BMI 35.3
--- NOTE | 2025-02-17 15:11 | MHC.PC.OV ---
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 Chair Required: No Accompanied by: Self / Same As Patient Allergies hydromorphone Allergy (Verified 02/17/25 15:11) Hallucinations oxycodone (OXYCODONE) Adverse Reaction (Severe, Verified 02/17/25 15:11) confusion budesonide (From Symbicort) Adverse Reaction (Verified 02/17/25 15:11) Loss of Voice formoterol (From Symbicort) Adverse Reaction (Verified 02/17/25 15:11) Loss of Voice prednisone Adverse Reaction (Verified 02/17/25 15:11) Confusion Tobacco use date assessed: 02/17/25 Dental Screening Dental Screen Date: 11/04/24 [facility] Medical History Cerebral microvascular disease Multifactorial gait disorder Peripheral neuropathy History of COVID-19 COPD (chronic obstructive pulmonary disease) GERD (gastroesophageal reflux disease) Hx of cancer of lung Anxiety Depression History of IBS Hyperlipidemia Surgical History History of lobectomy of lung Hx of colonoscopy (~08/29/13) History of lumbar discectomy History of bilateral carpal tunnel release Family History Father No problems noted. Mother No problems noted. Social History Household Members Other:: Elderly housing Housing: Apartment Are you a primary medical care evaluation specialist to a significant other at home: No Do you presently have visiting nurse or other home services: Yes (DIRECTOR OF PHYSIOTHERAPY SERVICES) Alcohol intake: current Alcohol intake frequency: holidays/special occasions only Patient Tobacco Use Status: Former Tobacco user Tobacco use type: Cigarette Second Hand Smoke Exposure: No service: No Current occupational status: retired Cognitive needs: No Hearing needs: No Vision needs: Yes (reading glasses) Questionnaire PHQ-9 Over the last 2 weeks, how often have you been bothered by any of the following problems? 1. Little interest or pleasure in doing things: not at all 2. Feeling down, depressed, or hopeless: not at all 3. Trouble falling or staying asleep, or sleeping too much: not at all 4. Feeling tired or having little energy: not at all 5. Poor appetite or overeating: not at all 6. Feeling bad about yourself - or that you are a failure or have let yourself or your family down: not at all 7. Trouble concentrating on things, such as reading the newspaper or watching television: not at all 8. Moving or speaking so slowly that other people could have noticed. Or the opposite - being so fidgety or restless that you have been moving around a lot more than usual: not at all 9. Thoughts that you would be better off or of hurting yourself in some way: not at all Total score: 0 Depression Screening Interpretation: Negative Depression Screening Done: Yes Source: Developed by Drs. Anup Dale, Mariza Sosa, Bernardo Sharpe and colleagues, with an educational saurabh from [employer]. Thrive Questionnaire Date Thrive assessed: 11/04/24 I am a: Patient What is your living situation today?: I have a steady place to live Within the past 12 months, did the food you bought not last and you didn't have the money to get more?: Never true Within the past 12 months, did you worry whether your food would run out before you got money to buy more?: Never true Do you have trouble paying for medicines?: No Do you have trouble getting transportation to medical appointments?: No Do you have trouble paying your heating and electricity bill?: No Do you have trouble taking care of your child, family member or friend?: No Do you have trouble with day-to-day activities such as bathing, preparing meals, shopping, managing finances, etc.?: No Are you currently unemployed and looking for a job?: No Are you interested in more education?: No Please select the resources that you would like help with: None Currently or been in a relationship where the following occur: No concerns reported THRIVE Score: 0 AUDIT C Alcohol Use Questionnaire (AUDIT-C) 1. How often do you have a drink containing alcohol?: Monthly or less 2. How many drinks containing alcohol do you have on a typical day when you are drinking?: 1 or 2 3. How often do you have six or more drinks on one occasion?: Never Total Score: 1 DIRK-7 AMB Questionnaire DIRK-7 Date DIRK - 7 assessed: 11/04/24 Feeling nervous, anxious, or on edge: 1 = Several days Not being able to stop or control worryin = Nearly every day Worrying too much about different things: 3 = Nearly every day Trouble relaxin = Several days Being so restless that it is hard to sit still: 1 = Several days Becoming easily annoyed or irritable: 1 = Several days Feeling afraid as if something awful might happen: 1 = Several days Total DIRK-7 score (0-4 normal; 5-9 mild; 10-14 moderate; 15-21 severe): 11 Source: Developed by Drs. Anup Dale, Mariza Sosa, Bernardo Sharpe and colleagues, with an educational saurabh from [employer]. Physical exam (Primary Care) Vital Signs: Last Vital Signs Temp 97.4 F 02/17/25 15:11 Pulse 108 H 02/17/25 15:11 Resp 16 02/17/25 15:11 BP 180/98 H 02/17/25 15:11 Pulse Ox 94 02/17/25 15:11 Oxygen Delivery Method Room Air 02/17/25 15:11 BMI result Body Mass Index 35.3 Tobacco/Smoking Status: Tobacco use Status Tobacco use date assessed 02/17/25 02/17/25 15:13 Patient Tobacco Use Status Former Tobacco user 02/17/25 15:13 Tobacco use type Cigarette 02/17/25 15:13 PHQ-9: PHQ-9 Score PHQ-9: Total score 0 02/17/25 15:23 Depression Screening Interpretation: Negative Thrive Assessment: Date of Thrive Assessment Date Thrive assessed 11/04/24 02/17/25 15:13 Currently or been in a relationship where the following occur: No concerns reported Office Procedures Flu Questionnaire Does the patient have a severe egg allergy?: No Does the patient have severe life threatening allergies?: No Does the patient have a fever or illness today?: No Has the patient ever had Guillain-Amity Syndrome?: No Has the patient ever had any past reaction to a flu shot?: No Immunizations Fluarix [id number] (PF) 45 mcg (15 mcg x 3)/0.5 mL IM syringe Performing Provider: Melo Boyer MD [facility] Documented (not given) by: JORDEN Lester on 02/17/25 15:23 Reason Not Given: Received Previously Coding Level of Care Code Est Pt Level 4 (93314) Complex EM visit Add On G2211 Diagnoses COPD (chronic obstructive pulmonary disease) J44.9 Assessment & Plan Assessment & Plan (1) COPD (chronic obstructive pulmonary disease): Code(s): J44.9 - Chronic obstructive pulmonary disease, unspecified Category: Medical Plan: History of Present Illness - The patient is a 79-year-old female presenting with management of multiple chronic conditions including hypertension, COPD, anxiety, and knee pain. - Essential Hypertension: Recently diagnosed with elevated blood pressure, likely related to stress from family issues. Previously normotensive. - Chronic Obstructive Pulmonary Disease (COPD): History of heavy smoking, currently in pulmonary rehabilitation. Uses nebulizer and Trelegy. Reports exercise difficulty due to knee pain. - Anxiety Disorder: Severe anxiety linked to family problems. Previously on lorazepam thrice daily, now takes as needed. High anxiety levels noted, but no recent lorazepam use. - Osteoarthritis of the knee: Reports significant left knee pain and swelling, especially nocturnal. Considering knee replacement; using OTC pain relief. - Intertrigo: Persistent rash under abdominal fold for two months. Tried powders and creams without success. Social History - Family Status: Reports significant stress due to strained relationships with son and daughter. - Exercise: Participates in pulmonary rehabilitation, but experiences difficulty due to knee pain. - Substance Use: History of heavy smoking, contributing to COPD. Review of Systems - Cardiovascular: Reports elevated blood pressure. Denies previous history of hypertension. - Respiratory: Reports difficulty with pulmonary rehabilitation exercises due to knee pain. Denies current respiratory distress. - Musculoskeletal: Reports significant left knee pain and swelling, especially at night. - Dermatological: Reports persistent rash under abdominal fold for two months. - Psychiatric: Reports severe anxiety related to family issues. Denies recent use of lorazepam despite high anxiety levels. Physical Exam General: Cooperative and healthy appearing Nutritional Appearance: Well nourished Orientation/consciousness: Patient oriented x3 Limitations: No limitations Head: Normal to inspection General: Appearance normal, both eyes and all related structures Neck: Normal visual inspection Chest: Normal palpation of entire chest wall Respiratory: Patient has COPD and is undergoing pulmonary rehab. Reports using a nebulizer and Trelegy for management. ormal respiratory effort Neurology: Patient oriented x3. Reports severe anxiety and has been prescribed lorazepam by psychiatrist, taken as needed. Results Plan - Start antihypertensive medication for blood pressure control. - Continue pulmonary rehabilitation for COPD, despite knee discomfort. - Plan knee x-ray and consider injections for osteoarthritis. - Use Extra Strength Tylenol or Advil for knee pain management. - Keep abdominal area dry and apply cornstarch powder for rash management. - Follow-up in one month to evaluate treatment progress. Discussion Notes I discussed the initiation of antihypertensive medication to manage the patient's elevated blood pressure. We reviewed the importance of continuing pulmonary rehabilitation for COPD, despite knee pain. I explained the need for a knee x-ray and potential injections to address osteoarthritis. We also talked about using Extra Strength Tylenol or Advil for pain relief and keeping the abdominal area dry with cornstarch powder for rash management. A follow-up appointment was scheduled in one month to reassess the patient's conditions and treatment efficacy. Patient Instructions - Take prescribed blood pressure medication as directed. - Continue attending pulmonary rehabilitation sessions. - Use Extra Strength Tylenol or Advil for knee pain as needed. - Keep the abdominal area dry and apply cornstarch powder after creams. - Return for follow-up in one month. Orders: Orders Influenza [id number] Immunization Today Z23 - Encounter for immunization Complete Blood Count no Diff Today J44.9 - Chronic obstructive pulmonary disease, unspecified Lipid Panel Today J44.9 - Chronic obstructive pulmonary disease, unspecified Liver Panel Today J44.9 - Chronic obstructive pulmonary disease, unspecified XR knee LT 3V Today S83.92XA - Sprain of unspecified site of left knee, initial encounter Basic Metabolic Panel Today J44.9 - Chronic obstructive pulmonary disease, unspecified Thyroid Stimulating Hormone Today J44.9 - Chronic obstructive pulmonary disease, unspecified UA and rflx microscopic Today J44.9 - Chronic obstructive pulmonary disease, unspecified Medications: New lisinopril 10 mg PO DAILY 90 tabs 1RF
--- OUTSIDE RECORDS SUMMARY | 2025-02-17 18:01 | XMS_ITS | Clinical Summary ---
Author Organization [facility] Address [address] [address] Phone Care Team Providers Care Medic Technician Name Role Phone Meghna Menjivar NP Primary Care Provider [phone] Allergies Active Allergy Reactions Criticality Noted Date Comments Hydromorphone Hallucinations High 09/28/2021 Oxycodone Hcl Hallucinations High 09/28/2021 Medications amLODIPine (NORVASC) 10 MG tablet Take 10 mg by mouth daily. 2 Active ipratropium-alb uteroL (DUONEB) 0.5-3 mg (2.5 mg base)/3 mL nebulizer solution Take 3 mL by nebulization every 4 (four) hours. 2 Active albuterol 2.5 mg /3 mL (0.083 %) nebulizer solution Take 2.5 mg by nebulization every 6 (six) hours as needed for shortness of breath/dyspnea or wheezing. 2 Active LORazepam (ATIVAN) 0.5 MG tablet Take 0.5 mg by mouth 2 (two) times a day (once in the morning and once in the afternoon). 2 Active cholecalciferol (VITAMIN D3) 2,000 unit tablet Take 2,000 Units by mouth daily. 2 Active primidone (MYSOLINE) 50 MG tablet Take 50 mg by mouth 3 (three) times a day. take 3 tablets PO BID 2 Active sertraline (ZOLOFT) 100 MG tablet Take 100 mg by mouth 2 (two) times a day. weaning off- starting 7/5 100mg in am 50mg in pm x3days, then 50mg am and 50mg bid x 3 days, then 50mg at bedtime x 3 days 2 Active simvastatin (ZOCOR) 40 MG tablet Take 40 mg by mouth nightly at bedtime. 2 Active umeclidinium-vi lanteroL (ANORO ELLIPTA) 62.5-25 mcg/actuation diskus inhaler Inhale 1 puff into the lungs daily. 2 Active dextromethorpha n-guaiFENesin (ROBITUSSIN-DM) 10-100 mg/5 mL liquid Take 10 mL by mouth every 4 (four) hours as needed (cough). 2 Active docusate sodium (COLACE ORAL) Take 100 mg by mouth 2 (two) times a day. HOLD IF LOOSE STOOL 2 Active albuterol (PROVENTIL HFA) 90 mcg/actuation inhaler Inhale 2 puffs into the lungs every 6 (six) hours as needed for shortness of breath/dyspnea or wheezing. 2 Active omeprazole magnesium 20 mg CpDR Take 20 mg by mouth daily. 2 Active ondansetron (ZOFRAN) 8 MG tablet Take 8 mg by mouth every 8 (eight) hours as needed for nausea. 2 Active DULoxetine (CYMBALTA) 20 MG capsule Take 20 mg by mouth daily. 2 Active Social History Tobacco Use Types Packs/Day Years Used Date Smoking Tobacco: Never Assessed Education Answer Date Recorded Are you interested in more education? Not on yoan e 09/01/2022 Are you concerned about learning? Not on file 09/01/2022 No 09/01/2022 No 09/01/2022 Digital Access Answer Date Recorded No 10/02/2022 No 10/02/2022 No 10/02/2022 Reliable internet access at home? Not on file 10/02/2022 Device with a working camera? Not on file Comments Unknown Sex and Gender Information Value Date Recorded Sex Assigned at Not on file Legal Sex Female 10:07 PM EDT Gender Identity Not on file Sexual Orientation Not on file Last Filed Vital Signs Vital Sign Reading Time Taken Comments Blood Pressure 134/78 11/16/2021 2:04 PM EDT Pulse 84 11/16/2021 2:04 PM EDT Temperature 36.2 C (97.2 F) 11/16/2021 2:04 PM EDT Respiratory Rate 18 11/03/2021 9:44 AM EDT Oxygen Saturation 96% 11/16/2021 2:04 PM EDT Inhaled Oxygen Concentration - - Weight 77.1 kg (170 lb) 09/28/2021 1:13 PM EDT Height 165.1 cm (5' 5 ) 09/28/2021 1:13 PM EDT Body Mass Index 28.29 09/28/2021 1:13 PM EDT Plan of Treatment Health Maintenance Due Date Last Done Comments Adult Td,Tdap Booster 1945 LIPID PANEL 1945 DEPRESSION SCREENING 1958 SMOKING Hx and SMOKELESS TOBACCO SCREENING 07/27/1959 HEPATITIS C SCREENING 1964 ZOSTER VACCINES (1 of 2) 1996 OSTEOPOROSIS SCREENING INITIAL (ONE-TIME) 07/27/2011 PNEUMOCOCCAL VACCINES (50+ years) (2 of 2 - PPSV23) 10/23/2019 10/22/2018 RSV VACCINE (1 - 1-dose 75+ series) 2021 INFLUENZA VACCINE (#1) 2024 , 01/05/2020, 02/24/2019, Additional history exists COVID-19 VACCINE ( season) 2025 08/24/2021, 03/01/2021, 06/16/2020, Additional history exists HEPATITIS A VACCINES Aged Out No long er eligible based on patient's age to complete this topic HIB VACCINES Aged Out No longer eligi ble based on patient's age to complete this topic MENINGOCOCCAL VACCINES (ACWY) Aged Out No longer eligible based on patient's age to complete this topic MENINGOCOCCAL VACCINES (B) Aged Out N o longer eligible based on patient's age to complete this topic Medical Devices Not on file Insurance [employer] MED[employer] HMO REPLACEMENT MEDICARE HMO REPLACEMENT MEDICARE HMO REPLACEMENT MEDICARE HMO REPLACEMENT MEDICARE HMO REPLACEMENT MEDICARE HMO REPLACEMENT [employer] MED[employer] HMO REPLACEMENT [employer] H[employer] REPLACEMENT JAKOB [employer]RAUNRON[employer] GABBY [id number] JAKOB [place]RAUNRONNI GABBY [id number] JAKOB BRAUNRONNI GABBY [id number] JAKOB [place]RON[place] [id number] [place] [address] [place] [address] [place] [address] Care Teams Medic Technician Relationship Specialty Start Date End Date Meghna Menjivar NP [address] [place] [address] PCP - General Family Medicine 09/27/21 Additional Source Comments The information contained in this document represents components of the legal health record. It is not the complete legal health record.[facility]
--- OUTSIDE RECORDS SUMMARY | 2025-02-17 18:01 | XMS_ITS | Patient Health Record ---
Author Organization [facility] Address [address] [place] [address] Care Team Providers Care Campus Ambassador Name Role Phone Chai Schumacher Primary Care Provider Anup Hermosillo Unavailable [phone] Reason For Referral No Information Medications Medication SIG (Take, Route, Frequency, Duration) Notes Start Date End Date Status ALPRAZolam 0.5mg Act homa Citalopram Hydrobromide 20mg Active Simvastatin 40mg Act homa Problems Problem Type SNOMED Code ICD Code Onset Dates Problem Status W/U Status Risk Notes Problem Irritable bowel syndrome (19636887) Irritable bowel syndrome (564.1) Active confirmed Problem Diarrhea (52119253) Diarrhea (787.91) Active confirmed Problem Constipation (36727211) Constipation (564.00) Active confirmed Problem Altered bowel function (39107825) Change in bowel function (787.99) Active confirmed Problem Gas (09844143) Gas (787.3) Active confirmed Plan Of Treatment [...] Insured Coverage Start Date Coverage End Date [facility] [address] [place] [address] [id number] MIAN MARQUEZ Self - patient is the insured Medicare of [facility] [address] [place] [address] [id number] MIAN MARQUEZ Self - patient is the insured Medical (General) History Medical History History ICD Code Colonoscopy 02-06-2005--singl e inflammatory colon polyp removed, internal hemorrhoids, sigmoid diverticulosis Hyperlipidemia Denies AR,DM,CVA,Lung disease,renal dise ase Depression/anxiety Colonoscopy in 08/2013--normal-bx neg for microscopic colitis-no polyps Surgical History Surgery Date(Month/Year) carpal tunnel release both hands disc surgery
--- OUTSIDE RECORDS SUMMARY | 2025-02-17 18:01 | XMS_ITS ---
Author Organization [facility] Care Team Providers Care Microfilmer Name Role Phone Elder, Whitney Woodchristiano Unavailable Unavailab le Allergies and adverse reactions Code CodeSystem Substance Reaction Severity StartDate Concern Status 7804 RXNORM Oxycodone Unknown 10/18/2015 active Care Team Name Role Address Phone Organization Dates Whitney Woodchristiano Elder [address] [place], [place], , [place] (Office): : [facility] 10/18/2015 - 10/28/2015 Mental Status Section Date Assessment Total Score Description 10/28/2015 BIMS 15 cognitively int act PHQ-9 07 mild depression 10/24/2015 BIMS 15 cognitively int act PHQ-9 07 mild depression Insurance Providers Problems Problem # Description Date of onset Resolved Date Code CodeSystem Concern Status 1 MUSCLE WEAKNESS (GENERALIZED) 10/20/[address] active 2 DIFFICULTY IN WALKING, NOT ELSEWHERE CLASSIFIED 10/19/[address] active 3 MALIGNANT NEOPLASM OF UPPER LOBE, LEFT BRONCHUS OR LUNG 10/19/[address] active 4 HYPERLIPIDEMIA, UNSPECIFIED 10/18/[address] active 5 HYPOXEMIA 10/18/[address] active 6 MAJOR DEPRESSIVE DISORDER, SINGLE EPISODE, UNSPECIFIED 10/18/[address] active 7 MALIGNANT NEOPLASM OF UNSPECIFIED PART OF UNSPECIFIED BRONCHUS OR LUNG 10/18/[address] active Reason for Referral No Reasons for Referral Entered Social History Social History Observation Description Start Date End Date Code Code System Current Smoking Status Tobacco smoking consumption unknown 437264924 SNOMED CT Sex Assigned At Female 1945 [address]2 [facility] Gender Identity Sexual Orientation Vital Signs Code Code System Vitals Name Values and Units Timing Information 9279-1 [facility] Respiratory Rate Value=20.0 Units=/m in 10/28/2015 8462-4 [facility] Blood Pressure-Diastolic Value=70 Un its=mmHg 10/28/2015 8480-6 [facility] Blood Pressure-Systolic Eufhi=391 Un its=mmHg 10/28/2015 8310-5 [facility] Body Temperature Value=98.0 Units= F 10/28/2015 8867-4 [facility] Heart rate Value=77.0 Units=/min 10415-5 [facility] Pain Level Value=5.0 10/27/2015 8302-2 [facility] Height Value=64.0 Units=Inches 10/25/2015 95580-9 [facility] Weight Zxmkj=525.6 Units=Lbs 65363-0 [facility] O2 % BldC Oximetry Value=96.0 Units= % 10/24/2015
== END 2025-02-17 15:46 | disposition home or self-care (01) ==
LOC: HO.HMCSH 15:08
PROVIDERS: PCP Internal Medicine; Visit Provider Internal Medicine
DX: J44.9 Chronic obstructive pulmonary disease, unspecified (principal); Z23 Encounter for immunization

== ENCOUNTER → 2025-02-17 15:08 | Outpatient (BNVA) | payer MEDICARE, SELFPAY | PROVIDERS: PCP Internal Medicine; Visit Provider Internal Medicine | DX: I10 Essential (primary) hypertension (principal); J44.9 Chronic obstructive pulmonary disease, unspecified; F41.9 Anxiety disorder, unspecified; M25.569 Pain in unspecified knee; Z28.89 Immunization not carried out for other reason | CPT/HCPCS: 90471; 96127; 99212 ==

== ENCOUNTER 2025-03-18 14:25 | Outpatient (REF) | payer MEDICARE, SELFPAY ==
[2025-03-18 16:16] LABS: Hematocrit 40.9 % (37.0-47.0); Hemoglobin 12.9 g/dl (12.0-16.0); Mean Corpuscular HGB Conc 31.5 g/dl (31.0-35.0); Mean Corpuscular Hemoglobin 29.0 pg (27.0-33.0); Mean Corpuscular Volume 91.9 fL (80.0-98.0); NRBC Abs Auto 0.000 X10*3/uL (0.0-0.012); NRBC Pct Auto 0.0 /100WBC (0.0-0.2); Platelet Count 352 X10*3/uL (160-400); Red Blood Count 4.45 X10*6/uL (4.20-5.50); White Blood Count 10.0 X10*3/uL (4.8-10.8)
[2025-03-18 16:19] LABS: Appearance Urine Hazy; Glucose Urine UA Negative (Negative); PH 6.0 (5.0-9.0); Specific Gravity - Urine >= 1.030 (1.005-1.025); UMIC TRIGGER UA YES
[2025-03-18 16:49] LABS: Alanine Aminotransferase 18 U/L (0-31); Albumin Level 4.2 g/dL (3.5-5.0); Alkaline Phosphatase 105 U/L (39-117); Anion Gap 12 (12-20); Aspartate Amino Transferase 22 U/L (5-31); Blood Urea Nitrogen 25 mg/dL (9-16); Calcium 9.8 mg/dL (8.4-10.2); Carbon Dioxide 25 mmol/L (22-29); Chloride 105 mmol/L (96-108); Cholesterol 191 mg/dL (<200); Estimated Glomerular Filt Rate > 60; HDL Cholesterol 57 mg/dL (>40); Potassium 4.5 mmol/L (3.3-5.1); Sodium 137 mmol/L (135-145); Total Protein 7.0 g/dL (6.5-8.0); Triglycerides 150 mg/dL (<150)
[2025-03-18 17:05] LABS: Thyroid Stimulating Hormone 2.82 uIU/mL (0.32-4.0)
--- OUTSIDE RECORDS SUMMARY | 2025-03-18 17:52 | XMS_ITS | Clinical Summary ---
Author Organization [facility] Address [address] [address] Phone Care Team Providers Care Tar And Ammonia Pump Operator Name Role Phone Meghna Menjivar NP Primary Care Provider +1- [phone] Allergies Active Allergy Reactions Criticality Noted Date [...] VACCINES (50+ years) (2 of 2 - PCV20 or PCV21) 10/23/2019 10/22/2018 RSV VACCINE (1 - 1-dose [...] on patient's age to complete this topic IPV VACCINES Aged Out No longer eligi ble based on patient's age to complete this topic MENINGOCOCCAL VACCINES (ACWY) Aged Out No longer eligible based on patient's age to complete this topic MENINGOCOCCAL VACCINES (B) Aged Out N o longer eligible based on patient's age to complete this topic Medical Devices Not on [place] [address] [place] [address] MED[address] [place] [place] [address] [address] [place] [place] [address] [place] [place] [address] MEDICARE HMO REPLACEMENT MEDICARE HMO REPLACEMENT MEDICARE HMO REPLACEMENT MEDICARE HMO REPLACEMENT [facility] MEDICARE HMO REPLACEMENT [employer] MEDICARE [place] [address] [place] [address] [place] [address] [place] [address] [place] [address] [place] [address] [place] [address] Care Teams Tar And Ammonia Pump Operator Relationship Specialty Start Date End Date Meghna Menjivar NP [address] [place] [address] PCP - General Family Medicine 09/27/21 Additional Source Comments The information contained in this document represents components of the legal health record. It is not the complete legal health record.[facility]
--- OUTSIDE RECORDS SUMMARY | 2025-03-18 17:52 | XMS_ITS | Patient Health Record ---
Author Organization [facility] Address [address] [place] [address] Care Team Providers Care Transmitter Supervisor Name Role Phone Chai Schumacher Primary Care Provider Anup Hermosillo Unavailable [phone] Reason For Referral No Information Medications Medication SIG (Take, Route, Frequency, Duration) Notes Start Date End Date Status ALPRAZolam 0.5mg Act homa Citalopram Hydrobromide 20mg Active Simvastatin 40mg Act homa Problems Problem Type SNOMED Code ICD Code Onset Dates Problem Status W/U Status Risk Notes Problem Irritable bowel syndrome (84764891) Irritable bowel syndrome (564.1) Active confirmed Problem Diarrhea (14060346) Diarrhea (787.91) Active confirmed Problem Constipation (14663817) Constipation (564.00) Active confirmed Problem Altered bowel function (54053137) Change in bowel function (787.99) Active confirmed Problem Gas (27955763) Gas (787.3) Active confirmed Plan Of Treatment [...] Insured Coverage Start Date Coverage End Date [facility] [address] [place] [address] [id number] MIAN MARQUEZ Self - patient is the insured Medicare of [facility] [address] [place] [address] [id number] MIAN MARQUEZ Self - patient is the insured Medical (General) History Medical History History ICD Code Colonoscopy 02-06-2005--singl e inflammatory colon polyp removed, internal hemorrhoids, sigmoid diverticulosis Hyperlipidemia Denies [place],DM,CVA,Lung disease,renal dise ase Depression/anxiety Colonoscopy in 08/2013--normal-bx neg for microscopic colitis-no polyps Surgical History Surgery Date(Month/Year) carpal tunnel release both hands disc surgery
== END 2025-03-18 14:26 | disposition home or self-care (01) ==
LOC: HO.HMGCLDS 14:25
PROVIDERS: PCP Internal Medicine; Visit Provider Internal Medicine
DX: J44.9 Chronic obstructive pulmonary disease, unspecified (principal); Z13.6 Encounter for screening for cardiovascular disorders; Z13.29 Encounter for screening for other suspected endocrine disorder
CPT/HCPCS: 36415; 80048; 80061; 80076; 81001; 84443; 85027

== ENCOUNTER 2025-03-23 13:38 | Outpatient (AMB) | payer MEDICARE, SELFPAY ==
--- NOTE | 2025-03-23 13:30 | MHC.PC.OV ---
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 Accompanied by: Self / Same As Patient Allergies hydromorphone Allergy (Verified 03/23/25 13:31) Hallucinations oxycodone (OXYCODONE) Adverse Reaction (Severe, Verified 03/23/25 13:31) confusion budesonide (From Symbicort) Adverse Reaction (Verified 03/23/25 13:31) Loss of Voice formoterol (From Symbicort) Adverse Reaction (Verified 03/23/25 13:31) Loss of Voice prednisone Adverse Reaction (Verified 03/23/25 13:31) Confusion Tobacco use date assessed: 02/17/25 Dental Screening Dental Screen Date: 11/04/24 HPI HPI Comments History of Present Illness Details History of Present Illness - The patient is a 79-year-old female presenting for a follow-up visit for chronic conditions and evaluation of a skin rash. - She reports her left knee is swollen, but the pain is not severe. - For her respiratory condition, she uses Trelegy every morning and a nebulizer approximately two times before bed, and her breathing is fine. - She uses lorazepam occasionally for anxiety. - The patient has a persistent, pruritic, fire engine red rash under her abdomen. - She has tried powders and creams without relief. - She associates the rash with redundant abdominal skin and increased perspiration. - For health maintenance, the patient has received her flu shot and had blood work completed on March 18. Social History - The patient reports she does not have a car, which creates transportation challenges. - She intends to use public transportation ([facility]) for future appointments. Results - Labs: Blood work was completed on March 18; results were not discussed. [facility] Medical History (Updated 03/23/25 @ 13:47 by Melo Boyer MD) Intertrigo Cerebral microvascular disease Multifactorial gait disorder Peripheral neuropathy History of COVID-19 COPD (chronic obstructive pulmonary disease) GERD (gastroesophageal reflux disease) Hx of cancer of lung Anxiety Depression History of IBS Hyperlipidemia Surgical History History of lobectomy of lung Hx of colonoscopy (~08/29/13) History of lumbar discectomy History of bilateral carpal tunnel release Family History Father No problems noted. Mother No problems noted. 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 1. Little interest or pleasure in doing things: not at all 2. Feeling down, depressed, or hopeless: not at all 3. Trouble falling or staying asleep, or sleeping too much: not at all 4. Feeling tired or having little energy: not at all 5. Poor appetite or overeating: not at all 6. Feeling bad about yourself - or that you are a failure or have let yourself or your family down: not at all 7. Trouble concentrating on things, such as reading the newspaper or watching television: not at all 8. Moving or speaking so slowly that other people could have noticed. Or the opposite - being so fidgety or restless that you have been moving around a lot more than usual: not at all 9. Thoughts that you would be better off or of hurting yourself in some way: not at all Total score: 0 Depression Screening Interpretation: Negative Depression Screening Done: Yes Source: Developed by Drs. Anup Dale, Mariza Sosa, Bernardo Sharpe and colleagues, with an educational saurabh from [employer]. Thrive Questionnaire Date Thrive assessed: 11/04/24 I am a: Patient What is your living situation today?: I have a steady place to live Within the past 12 months, did the food you bought not last and you didn't have the money to get more?: Never true Within the past 12 months, did you worry whether your food would run out before you got money to buy more?: Never true Do you have trouble paying for medicines?: No Do you have trouble getting transportation to medical appointments?: No Do you have trouble paying your heating and electricity bill?: No Do you have trouble taking care of your child, family member or friend?: No Do you have trouble with day-to-day activities such as bathing, preparing meals, shopping, managing finances, etc.?: No Are you currently unemployed and looking for a job?: No Are you interested in more education?: No Please select the resources that you would like help with: None Currently or been in a relationship where the following occur: No concerns reported THRIVE Score: 0 AUDIT C Alcohol Use Questionnaire (AUDIT-C) 1. How often do you have a drink containing alcohol?: Monthly or less 2. How many drinks containing alcohol do you have on a typical day when you are drinking?: 1 or 2 3. How often do you have six or more drinks on one occasion?: Never Total Score: 1 DIRK-7 AMB Questionnaire DIRK-7 Date DIRK - 7 assessed: 11/04/24 Feeling nervous, anxious, or on edge: 1 = Several days Not being able to stop or control worryin = Nearly every day Worrying too much about different things: 3 = Nearly every day Trouble relaxin = Several days Being so restless that it is hard to sit still: 1 = Several days Becoming easily annoyed or irritable: 1 = Several days Feeling afraid as if something awful might happen: 1 = Several days Total DIRK-7 score (0-4 normal; 5-9 mild; 10-14 moderate; 15-21 severe): 11 Source: Developed by Drs. Anup Dale, Mariza Sosa, Bernardo Sharpe and colleagues, with an educational saurabh from [employer]. Review of Systems Narrative Review of Systems - General: Reports having no complaints. - Integumentary: Reports a pruritic, erythematous rash under the abdomen. - Musculoskeletal: Reports edema of the left knee. - Respiratory: Denies increased breathing difficulty, with symptoms controlled by Trelegy and a nebulizer. - Psychiatric: Reports occasional anxiety. Physical exam (Primary Care) Vital Signs: Last Vital Signs Temp 97.6 F 03/23/25 13:31 Pulse 106 H 03/23/25 13:31 Resp 18 03/23/25 13:31 BP 107/58 L 03/23/25 13:31 Pulse Ox 92 03/23/25 13:31 Oxygen Delivery Method Room Air 03/23/25 13:31 BMI result Body Mass Index 35.6 Tobacco/Smoking Status: Tobacco use Status Tobacco use date assessed 02/17/25 03/23/25 13:38 Patient Tobacco Use Status Former Tobacco user 03/23/25 13:38 Tobacco use type Cigarette 03/23/25 13:38 PHQ-9: PHQ-9 Score PHQ-9: Total score 0 03/23/25 13:38 Depression Screening Interpretation: Negative Thrive Assessment: Date of Thrive Assessment Date Thrive assessed 11/04/24 03/23/25 13:38 Currently or been in a relationship where the following occur: No concerns reported Narrative Physical Exam General: Appearance normal, both eyes and all related structures Nutritional Appearance: Well nourished Orientation/consciousness: Patient oriented x3 Limitations: No limitations Head: Normal to inspection Neck: Normal visual inspection Chest: Normal palpation of entire chest wall Respiratory: Normal respiratory effort with nebulizer and Trelegy use Neurology: Patient oriented x3 Coding Level of Care Code Est Pt Level 4 (24784) Complex EM visit Add On G2211 Diagnoses Intertrigo L30.4 Assessment & Plan Assessment & Plan (1) Intertrigo: Code(s): L30.4 - Erythema intertrigo Category: Medical Plan: History of Present Illness - The patient is a 79-year-old female presenting for a follow-up visit for chronic conditions and evaluation of a skin rash. - She reports her left knee is swollen, but the pain is not severe. - For her respiratory condition, she uses Trelegy every morning and a nebulizer approximately two times before bed, and her breathing is fine. - She uses lorazepam occasionally for anxiety. - The patient has a persistent, pruritic, fire engine red rash under her abdomen. - She has tried powders and creams without relief. - She associates the rash with redundant abdominal skin and increased perspiration. - For health maintenance, the patient has received her flu shot and had blood work completed on March 18. Social History - The patient reports she does not have a car, which creates transportation challenges. - She intends to use public transportation ([facility]) for future appointments. Review of Systems - General: Reports having no complaints. - Integumentary: Reports a pruritic, erythematous rash under the abdomen. - Musculoskeletal: Reports edema of the left knee. - Respiratory: Denies increased breathing difficulty, with symptoms controlled by Trelegy and a nebulizer. - Psychiatric: Reports occasional anxiety. Physical Exam General: Appearance normal, both eyes and all related structures Nutritional Appearance: Well nourished Orientation/consciousness: Patient oriented x3 Limitations: No limitations Head: Normal to inspection Neck: Normal visual inspection Chest: Normal palpation of entire chest wall Respiratory: Normal respiratory effort with nebulizer and Trelegy use Neurology: Patient oriented x3 Results - Labs: Blood work was completed on March 18; results were not discussed. Plan - A referral will be placed to dermatology for evaluation of the persistent subabdominal rash. - The dermatology referral will be directed to [facility] in [place] to accommodate the patient's transportation needs. - The patient reported no need for medication refills at this visit. - The patient will follow up in three months. Discussion Notes I discussed the patient's persistent, pruritic rash under her abdomen. Given that [id number] creams and powders have been ineffective, I recommended a consultation with a foiling machine operator, and the patient agreed. We discussed her transportation limitations, and I will place the referral to a dermatology practice in a location accessible to her via public transit. We confirmed that no medication refills were needed today. I advised the patient to return for a follow-up appointment in three months. Patient Instructions - You will be referred to a foiling machine operator for your skin rash. - The referral will be for [facility] in [place], which you can get to by public transportation. - Continue your current medications, including Trelegy and your nebulizer, as you have been taking them. - No new medications or refills were given today. - Please schedule a follow-up appointment in three months. Plan Plan - A referral will be placed to dermatology for evaluation of the persistent subabdominal rash. - The dermatology referral will be directed to [facility] in [place] to accommodate the patient's transportation needs. - The patient reported no need for medication refills at this visit. - The patient will follow up in three months. Discussion Notes I discussed the patient's persistent, pruritic rash under her abdomen. Given that [id number] creams and powders have been ineffective, I recommended a consultation with a foiling machine operator, and the patient agreed. We discussed her transportation limitations, and I will place the referral to a dermatology practice in a location accessible to her via public transit. We confirmed that no medication refills were needed today. I advised the patient to return for a follow-up appointment in three months. Patient Instructions - You will be referred to a foiling machine operator for your skin rash. - The referral will be for [facility] in [place], which you can get to by public transportation. - Continue your current medications, including Trelegy and your nebulizer, as you have been taking them. - No new medications or refills were given today. - Please schedule a follow-up appointment in three months. Orders: Referrals Dermatology Referral L30.4 - Erythema intertrigo
[2025-03-23 13:31] VITALS: BP 107/58; PULSE 106; RESP 18; TEMP 36.4; O2SAT 92; BMI 35.6
== END 2025-03-23 13:54 | disposition home or self-care (01) ==
LOC: HO.HMCSH 13:38
PROVIDERS: PCP Internal Medicine; Visit Provider Internal Medicine
DX: L30.4 Erythema intertrigo (principal)

== ENCOUNTER → 2025-03-23 13:38 | Outpatient (BNVA) | payer MEDICARE, SELFPAY | PROVIDERS: PCP Internal Medicine; Visit Provider Internal Medicine | DX: L30.4 Erythema intertrigo (principal) | CPT/HCPCS: 96127; 99212 ==